=== PATIENT | female | born 1990 | race Caucasian/White ===

== ENCOUNTER 2024-09-18 20:54 | Emergency (ER) | payer OTHER ==
[~2024-09-18] VITALS: Ht 157.5 cm; Wt 45.4 kg
[2024-09-18] MEDS ORDERED: Ketorolac Tromethamine 10 MG Tab PO ONE (22:30)
== END 2024-09-18 22:36 | disposition other institution (70) ==
LOC: ER 20:54
DX: M25.511 Pain in right shoulder (principal)
CPT/HCPCS: 99283; A9270

== ENCOUNTER 2024-09-30 19:48 | Emergency (ER) | payer OTHER ==
[~2024-09-30] VITALS: Ht 157.5 cm; Wt 43.1 kg
[2024-09-30 20:27] LABS: BASOPHILS ABSOLUTE AUTO 0.09 K/mm3 (0.00-0.23); BASOPHILS PERCENT AUTO 1 % (0-2); EOSINOPHILS ABSOLUTE AUTO 0.66 K/mm3 (0.00-0.68); EOSINOPHILS PERCENT AUTO 4 % (0-6); Hematocrit 38.5 % (33.0-51.0); Hemoglobin 12.7 g/dL (11.5-16.0); IMMATURE GRAN ABSOLUTE AUTO 0.08 K/mm3 (0.00-0.10); IMMATURE GRAN PERCENT AUTO 0 % (0-1); LYMPHOCYTES ABSOLUTE AUTO 2.66 K/mm3 (0.84-5.20); LYMPHOCYTES PERCENT AUTO 14 % (21-46); MONOCYTES ABSOLUTE AUTO 1.39 K/mm3 (0.16-1.47); MONOCYTES PERCENT AUTO 8 % (4-13); Mean Corpuscular HGB 30.2 pg (26.0-34.0); Mean Corpuscular Volume 92 fL (80-100); NEUTROPHILS PERCENT AUTO 74 % (41-73); Platelet Count 375 K/mm3 (150-400); RDW Coefficient Variation 12.7 % (11.7-14.2); RDW Standard Deviation 42.2 fL (35.1-46.3); White Blood Cell Count 18.58 K/mm3 (4.00-11.30)
[2024-09-30 20:45] LABS: Albumin, Blood 3.7 g/dL (3.4-5.0); Albumin/Globulin Ratio 0.9 (0.8-1.8); Bilirubin, Total 0.5 mg/dL (0.1-1.0); Bun/Creatinine Ratio 17.2 (12.0-20.0); Calcium, Blood 8.7 mg/dL (8.5-10.1); Creatinine, Blood 0.76 mg/dL (0.40-1.00); Globulin, Blood 4.3 g/dL (2.2-4.0); Potassium, Blood 3.7 mmol/L (3.5-5.5)
[2024-09-30] MEDS ORDERED: BACTRIM DS TAB1 EAC1 PO (22:25)
[2024-09-30] MEDS ORDERED: Trimethoprim/Sulfamethoxazole DS Tab PO ONE (22:25)
== END 2024-09-30 22:33 | disposition home or self-care (01) ==
LOC: ER 19:48
PROVIDERS: Physician Assistant
DX: N76.4 Abscess of vulva (principal)
CPT/HCPCS: 80053; 83605; 85025; 99283; A9270